=== PATIENT | male | born 2000 | race Caucasian/White ===

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

== ENCOUNTER → 2025-03-15 | Outpatient (CLI) | payer OTHER | LOC: LAB 17:03 → LAB SHORT 17:03 | DX: R10.9 Unspecified abdominal pain (principal); R79.9 Abnormal finding of blood chemistry, unspecified; E55.9 Vitamin D deficiency, unspecified; D51.0 Vitamin B12 deficiency anemia due to intrinsic factor deficiency | CPT/HCPCS: 87338 ==